=== PATIENT | male | born 1960 | race Caucasian/White ===

== ENCOUNTER → 2016-06-25 | Day surgery (SDC) | payer MEDICARE ==
[~2016-06-25] MED LIST: ASPIR 8181 MG PO; ASPIRIN CHEWABL81 MG PO; DALIRESP 500500 MCG PO; DALIRESP500 MCG PO; GLIPIZIDE5 MG PO; HYDRALAZINE HCL25 MG PO; IMDUR ER TAB 3030 MG PO; ISOSORBIDE MONO30 MG PO; LASIX20 MG PO; LEVEMIR100 UNIT/1 SQ; LIPITOR TAB 2020 MG PO; METOPROLOL SUC200 MG PO; NORCO 7.5-3251 EACH PO; PLAVIX 75 MG TA75 MG PO; PROAIR HFA8.5 GM INH; SPIRIVA HANDIH18 MCG INH; SPIRIVA18 MCG INH; SYMBICORT 160-1 INHA INH; TYLENOL325 MG PO; VITAMIN B-122000 MC1 PO; VITAMIN B12-FO1 EACH PO; VITAMIN D50000 UNIT PO
== END | disposition home or self-care (01) ==
LOC: OR 06:45
PROVIDERS: Internal Medicine Gastroenterology
PROC: 0DBN8ZZ Excision of Sigmoid Colon, Via Natural or Artificial Opening Endoscopic (ICD-10-PCS; principal; 2016-06-25 08:45)
DX: Z12.11 Encounter for screening for malignant neoplasm of colon (principal); D12.5 Benign neoplasm of sigmoid colon; K64.0 First degree hemorrhoids; J44.9 Chronic obstructive pulmonary disease, unspecified; I25.2 Old myocardial infarction; I25.119 Atherosclerotic heart disease of native coronary artery with unspecified angina pectoris; I12.9 Hypertensive chronic kidney disease with stage 1 through stage 4 chronic kidney disease, or unspecified chronic kidney disease; N18.3 Chronic kidney disease, stage 3 (moderate); Z87.01 Personal history of pneumonia (recurrent); Z87.891 Personal history of nicotine dependence; Z82.49 Family history of ischemic heart disease and other diseases of the circulatory system; Z83.3 Family history of diabetes mellitus; Z90.49 Acquired absence of other specified parts of digestive tract; Z95.0 Presence of cardiac pacemaker
CPT/HCPCS: 82962; J2250; J7030

== ENCOUNTER → 2016-08-02 | Outpatient (CLI) | payer MEDICARE ==
[2016-08-02 08:42] LABS: HEMOGLOBIN 11.9 gm/dl (14.0-17.5); RED BLOOD COUNT 4.15 M/UL (4.20-5.50); WHITE BLOOD COUNT 4.6 K/UL (4.5-11.0)
== END ==
LOC: LAB 08:12
PROVIDERS: Internal Medicine Nephrology
DX: N18.3 Chronic kidney disease, stage 3 (moderate) (principal)
CPT/HCPCS: 36415; 80053; 82570; 84156; 85027; 85610; 85730

== ENCOUNTER → 2016-08-05 | Outpatient (CLI) | payer MEDICARE | LOC: CT 06:25 | PROC: 0TB03ZX Excision of Right Kidney, Percutaneous Approach, Diagnostic (ICD-10-PCS; principal; 2016-08-05) | DX: E88.9 Metabolic disorder, unspecified (principal); E66.9 Obesity, unspecified; E78.5 Hyperlipidemia, unspecified; E87.5 Hyperkalemia; E55.9 Vitamin D deficiency, unspecified; R16.1 Splenomegaly, not elsewhere classified; R80.9 Proteinuria, unspecified; E11.65 Type 2 diabetes mellitus with hyperglycemia; E11.22 Type 2 diabetes mellitus with diabetic chronic kidney disease; E31.9 Polyglandular dysfunction, unspecified; J44.9 Chronic obstructive pulmonary disease, unspecified; I25.10 Atherosclerotic heart disease of native coronary artery without angina pectoris; N17.9 Acute kidney failure, unspecified; N18.9 Chronic kidney disease, unspecified; Z95.810 Presence of automatic (implantable) cardiac defibrillator | CPT/HCPCS: 77012; 82962; 88305; 88313; 88346; 88348 ==

== ENCOUNTER → 2016-12-19 | Day surgery (SDC) | payer MEDICARE | END | disposition home or self-care (01) | LOC: OR 11-28 07:30 | PROVIDERS: Surgery | PROC: 0HB6XZZ Excision of Back Skin, External Approach (ICD-10-PCS; 2016-12-19) | PROC: 0HQ6XZZ Repair Back Skin, External Approach (ICD-10-PCS; principal; 2016-12-19 09:30) | DX: L72.0 Epidermal cyst (principal); J44.9 Chronic obstructive pulmonary disease, unspecified; I25.10 Atherosclerotic heart disease of native coronary artery without angina pectoris; E78.5 Hyperlipidemia, unspecified; I12.9 Hypertensive chronic kidney disease with stage 1 through stage 4 chronic kidney disease, or unspecified chronic kidney disease; E10.22 Type 1 diabetes mellitus with diabetic chronic kidney disease; N18.3 Chronic kidney disease, stage 3 (moderate); I25.2 Old myocardial infarction; E10.8 Type 1 diabetes mellitus with unspecified complications; M17.12 Unilateral primary osteoarthritis, left knee; M17.11 Unilateral primary osteoarthritis, right knee; Z87.891 Personal history of nicotine dependence; Z79.82 Long term (current) use of aspirin; Z79.51 Long term (current) use of inhaled steroids; Z79.52 Long term (current) use of systemic steroids; Z79.899 Other long term (current) drug therapy | CPT/HCPCS: 82962; J0690; J1885; J2250; J3010; J7030; J7120 ==

== ENCOUNTER 2020-08-23 00:25 | Inpatient (IN) | payer MEDICARE, OTHER ==
[~2020-08-23] VITALS: Ht 177.8 cm; Wt 77.1 kg
[~2020-08-23 00:25] MED LIST changes: -VITAMIN D50000 UNIT PO
[2020-08-23 01:09] LABS: HEMOGLOBIN 10.6 gm/dl (14.0-17.5); RED BLOOD COUNT 4.02 M/UL (4.20-5.50); WHITE BLOOD COUNT 8.4 K/UL (4.5-11.0)
[2020-08-23 07:02] LABS: HEMOGLOBIN 10.4 gm/dl (14.0-17.5); RED BLOOD COUNT 3.94 M/UL (4.20-5.50)
[2020-08-23 07:06] LABS: WHITE BLOOD COUNT 12.6 K/UL (4.5-11.0)
[2020-08-23] MEDS ORDERED: LASIX20 MG PO (07:44)
[2020-08-23] MEDS ORDERED: LIPITOR80 MG PO (07:45)
[2020-08-23] MEDS ORDERED: VITAMIN D350 MC3 PO (07:47)
[2020-08-23] MEDS ORDERED: ANORO ELLIPTA1 EACH INH (11:33)
[2020-08-23] MEDS ORDERED: PROTONIX 40 MG40 M1 PO (11:33)
[2020-08-23] MEDS ORDERED: COZAAR25 MG PO (11:34)
[2020-08-23] MEDS ORDERED: LEXAPRO10 MG PO (11:34)
[2020-08-23 12:51] LABS: ACINETOBACTER BAUMANNII Not Detected (Negative); CANDIDA ALBICANS Not Detected (Negative); CANDIDA KRUSEI Not Detected (Negative); CANDIDA TROPICALIS Not Detected (Negative); ESCHERICHIA COLI Not Detected (Negative); HAEMOPHILUS INFLUENZAE Not Detected (Negative); KLEBSIELLA OXYTOCA Not Detected (Negative); KLEBSIELLA PNEUMONIAE Not Detected (Negative); KPC-CARBAPENEM-RESISTANCE GENE Not Detected (Negative); PROTEUS Not Detected (Negative); PSEUDOMONAS AERUGINOSA Not Detected (Negative); SERRATIA MARCESANS Not Detected (Negative); STAPHYLOCOCCUS Not Detected (Negative); STAPHYLOCOCCUS AUREUS Not Detected (Negative); STREP AGALACTIAE (GROUP B) Not Detected (Negative); STREP PYOGENES (GROUP A) Not Detected (Negative); STREPTOCOCCUS Not Detected (Negative); mecA (METHICILLIN RESIST GENE Not Detected (Negative); vanA/B (VANCOMYCIN RESIST GENE Not Detected (Negative)
[2020-08-23] MEDS ORDERED: SILDENAFIL20 MG PO (13:59)
[2020-08-23 14:09] LABS: ENTEROCOCCUS DETECTED (Negative)
[2020-08-23 18:28] LABS: BORDETELLA PARAPERTUSSIS Not Detected (Not Detectd); BORDETELLA PERTUSSIS Not Detected (Not Detectd); CHLAMYDIA PNEUMONIAE Not Detected (Not Detectd); CORONAVIRUS HKU1 Not Detected (Not Detectd); CORONAVIRUS NL63 Not Detected (Not Detectd); CORONAVIRUS OC43 Not Detected (Not Detectd); CORONOAVIRUS 229E Not Detected (Not Detectd); HUMAN METAPNEUMOVIRUS Not Detected (Not Detectd); HUMAN RHINOVIRUS/ENTEROVIRUS Not Detected (Not Detectd); INFLUENZA A Not Detected (Not Detectd); INFLUENZA B Not Detected (Not Detectd); MYCOPLASMA PNEUMONIAE Not Detected (Not Detectd); PARAINFLUENZA VIRUS 1 Not Detected (Not Detectd); PARAINFLUENZA VIRUS 2 Not Detected (Not Detectd); PARAINFLUENZA VIRUS 3 Not Detected (Not Detectd); PARAINFLUENZA VIRUS 4 Not Detected (Not Detectd); RESPIRATORY SYNCYTIAL VIRUS Not Detected (Not Detectd)
[2020-08-23 19:47] LABS: SARS-CoV-2 NOT DETECTED (Not Detectd)
[2020-08-25 05:14] LABS: HEMOGLOBIN 9.6 gm/dl (14.0-17.5); RED BLOOD COUNT 3.62 M/UL (4.20-5.50); WHITE BLOOD COUNT 4.8 K/UL (4.5-11.0)
--- NOTE | 2020-08-26 03:13 | NUR ---
APPROX 0245 PATIENT CALLS OUT COMPLAINING OF SHORTNESS OF BREATH AND INABILITY TO CATCH HIS BREATH. PT ASSESSED, PT IS TACHYPNEIC AT 32 BREATHS PER MINUTE, SAO2 89% ON [id number], TACHYCARDIC 127 BPM. RT NOTIFIED AND IS AT BEDSIDE FOR BREATHING TREATMENT. POST TREATMENT PATIENT DENIES ANY IMPROVEMENT. CALLED AND NOTIFIED DR RED OF PATIENT STATUS AND RECEIVED NEW ORDERS. MONITORING CLOSELY.
[2020-08-26 05:46] LABS: HEMOGLOBIN 9.1 gm/dl (14.0-17.5); RED BLOOD COUNT 3.51 M/UL (4.20-5.50); WHITE BLOOD COUNT 5.4 K/UL (4.5-11.0)
[2020-08-26 08:13] LABS: CREATININE, URINE 78.6 mg/dL (Not Estab.)
[2020-08-27 02:07] LABS: HEMOGLOBIN 10.3 gm/dl (14.0-17.5)
[2020-08-27 02:08] LABS: RED BLOOD COUNT 3.92 M/UL (4.20-5.50); WHITE BLOOD COUNT 6.8 K/UL (4.5-11.0)
[2020-08-27 10:10] LABS: HBSAG SCREEN Negative (Negative); HEP A AB, IGM Negative (Negative); HEP B CORE AB, IGM Negative (Negative); HEP C VIRUS AB <0.1 (0.0-0.9)
[2020-08-28 05:06] LABS: HEMOGLOBIN 9.7 gm/dl (14.0-17.5); RED BLOOD COUNT 3.69 M/UL (4.20-5.50); WHITE BLOOD COUNT 6.5 K/UL (4.5-11.0)
[2020-08-29 03:42] LABS: HEMOGLOBIN 10.7 gm/dl (14.0-17.5); RED BLOOD COUNT 4.03 M/UL (4.20-5.50); WHITE BLOOD COUNT 6.1 K/UL (4.5-11.0)
[2020-08-30 03:11] LABS: HEMOGLOBIN 10.1 gm/dl (14.0-17.5); RED BLOOD COUNT 3.78 M/UL (4.20-5.50)
[2020-08-30 03:24] LABS: WHITE BLOOD COUNT 8.3 K/UL (4.5-11.0)
--- NOTE | 2020-08-30 18:54 | NUR ---
AT 1745 PT HAD CHANGE IN STATUS. STILL SHORT OF AIR AND APPEARED TO BE DECLINING. UNABLE TO COMMUNICATE NEEDS OR MAINTAIN EYE CONTACT. DR. AGUAYO NOTIFIED TO COME SEE PATIENT AND NEW ORDERS NOTED.
--- NOTE | 2020-08-30 18:56 | NUR ---
DR. AGUAYO CAME TO SEE PATIENT AND HAS COMMUNICATED DECLINE TO FAMILY. SPOKE WITH AND OTHER FAMILY MEMBERS THAT PATIENT APPEARS TO BE REACHING END OF LIFE. DR. LUONG HAS BEEN NOTIFIED ALSO OF CHANGE IN PATIENT CONDITION AND HAS BEEN AT BEDSIDE TO SPEAK WITH THE FAMILY. FAMILY IS AT BEDSIDE FOR SUPPORT.
== END 2020-08-30 23:22 | disposition expired | DRG 871 ==
LOC: ER1 00:25 → CCU 03:01 → CDU 03:01 → CCU 04:53
PROVIDERS: Family Medicine; Internal Medicine; Internal Medicine Nephrology; ADMIT Internal Medicine
PROC: 3E033XZ Introduction of Vasopressor into Peripheral Vein, Percutaneous Approach (ICD-10-PCS; principal; 2020-08-23)
PROC: 5A09557 Assistance with Respiratory Ventilation, Greater than 96 Consecutive Hours, Continuous Positive Airway Pressure (ICD-10-PCS; principal; 2020-08-23)
PROC: B24BZZZ Ultrasonography of Heart with Aorta (ICD-10-PCS; 2020-08-23)
PROC: 02HV33Z Insertion of Infusion Device into Superior Vena Cava, Percutaneous Approach (ICD-10-PCS; 2020-08-27)
PROC: B548ZZA Ultrasonography of Superior Vena Cava, Guidance (ICD-10-PCS; 2020-08-27)
PROC: 5A1D70Z Performance of Urinary Filtration, Intermittent, Less than 6 Hours Per Day (ICD-10-PCS; 2020-08-27)
DX: A41.81 Sepsis due to Enterococcus (principal); R65.21 Severe sepsis with septic shock; J18.9 Pneumonia, unspecified organism; J96.01 Acute respiratory failure with hypoxia; G92 Toxic encephalopathy; N17.0 Acute kidney failure with tubular necrosis; N18.6 End stage renal disease; I50.43 Acute on chronic combined systolic (congestive) and diastolic (congestive) heart failure; J44.0 Chronic obstructive pulmonary disease with (acute) lower respiratory infection; I42.9 Cardiomyopathy, unspecified; E87.2 Acidosis; E87.1 Hypo-osmolality and hyponatremia; J44.1 Chronic obstructive pulmonary disease with (acute) exacerbation; I13.2 Hypertensive heart and chronic kidney disease with heart failure and with stage 5 chronic kidney disease, or end stage renal disease; I31.3 Pericardial effusion (noninflammatory); Z20.822 Contact with and (suspected) exposure to COVID-19; Z66 Do not resuscitate; Z51.5 Encounter for palliative care; E87.5 Hyperkalemia; J84.10 Pulmonary fibrosis, unspecified; I25.10 Atherosclerotic heart disease of native coronary artery without angina pectoris; J64 Unspecified pneumoconiosis; I49.5 Sick sinus syndrome; L89.321 Pressure ulcer of left buttock, stage 1; L89.326 Pressure-induced deep tissue damage of left buttock; I08.2 Rheumatic disorders of both aortic and tricuspid valves; E11.22 Type 2 diabetes mellitus with diabetic chronic kidney disease; F10.10 Alcohol abuse, uncomplicated; D63.1 Anemia in chronic kidney disease; J62.8 Pneumoconiosis due to other dust containing silica; I27.22 Pulmonary hypertension due to left heart disease; D69.6 Thrombocytopenia, unspecified; Z79.4 Long term (current) use of insulin; Z99.81 Dependence on supplemental oxygen; Z87.891 Personal history of nicotine dependence; Z95.810 Presence of automatic (implantable) cardiac defibrillator; Z95.5 Presence of coronary angioplasty implant and graft; Z99.2 Dependence on renal dialysis; Z79.82 Long term (current) use of aspirin; Z79.52 Long term (current) use of systemic steroids; Z90.49 Acquired absence of other specified parts of digestive tract; Z82.49 Family history of ischemic heart disease and other diseases of the circulatory system; Z83.3 Family history of diabetes mellitus; Z84.89 Family history of other specified conditions; Z79.899 Other long term (current) drug therapy
CPT/HCPCS: ECHO; 0240U; 36415; 36600; 71045; 80048; 80053; 80074; 80202; 81001; 82043; 82550; 82553; 82570; 82728; 82803; 82962; 83540; 83550; 83605; 83735; 83874; 83880; 84100; 84132; 84156; 84484; 85025; 85027; 87040; 87077; 87086; 87150; 87186; 87205; 87633; 90935; 90937; 93005; 93306; 93971; 94640; 94660; 94664; 94760; 96374; 96375; 97110-GP-CQ; 97162; 97166; 97530-GP-CQ; 99285; A6212; C1752; C9113; J0360; J1644; J1940; J2060; J2185; J2270; J2543; J2920; J3370; J7040; J7070